=== PATIENT | female | born 1990 | race Caucasian/White ===

== ENCOUNTER 2016-05-07 17:10 | Emergency (ER) | payer SELFPAY ==
[2016-05-07] MEDS ORDERED: Oseltamivir 75 MG CAP ONE (17:49)
--- NOTE | 2016-05-07 18:13 | ERRECORD ---
[facility] EMERGENCY RECORD HPI URI (17:21 WMEI) CHIEF COMPLAINT: Patient presents for evaluation of nasal congestion, Patient presents for evaluation of cough. HISTORIAN: History provided by patient, MYALGIAS AND SUBJECTIVE FEVER. LOCATION: Symptoms are generalized. TIME COURSE: Gradual onset of symptoms, 2, days priror to arrival. ASSOCIATED WITH: No associated chest pain, Associated with chills, Associated with fever, subjective, Associated with headache, currently resolved. EXACERBATED BY: Patient's condition exacerbated by nothing. RELIEVED BY: Patient's condition relieved by nothing. ROS (17:22 WMEI) CONSTITUTIONAL: Historian reports chills, reports fever. EYES: Historian reports eye pain, reports eye discharge. ENT: Historian denies otalgia, reports rhinorrhea, denies sore throat. CARDIOVASCULAR: Historian denies chest pain. RESPIRATORY: Historian reports cough. GI: Historian denies abdominal pain, denies nausea, denies vomiting. GENITOURINARY FEMALE: Historian denies frequency, denies urgency. MUSCULOSKELETAL: Historian denies joint stiffness, denies joint swelling. SKIN: Historian denies skin changes. NEUROLOGIC: Historian denies dizziness, reports headache. PSYCHIATRIC: Historian denies anxiety, denies depression. PAST MEDICAL HISTORY (17:18 ASAH) MEDICAL HISTORY: No past medical history. FEMALE SURGICAL HISTORY: Patient has no surgical history. PSYCHIATRIC HISTORY: No previous psychiatric history. SOCIAL HISTORY: Patient denies alcohol use, Patient denies drug use, Patient currently uses tobacco, smokes cigarettes, Patient smokes 1/2 packs per day. KNOWN ALLERGIES azithromycin traMADol: Reaction: Hives, Severity: Severe, Source: Patient CURRENT MEDICATIONS (17:18 ASAH) None VITAL SIGNS &a-1R&a+25V*p+0X*l8242K*c202B*c15G*c2P*p-0X&a-25V&a+1R Name: Quiana Peterson : 1990 F25 MedRec: [id number] AcctNum: [id number] Prepared: Bessie May 07, 2016 22:55 by Interface Page 1 of 3 pMD [facility] EMERGENCY RECORD VITAL SIGNS: BP: 122/98, Pulse: 128, Resp: 18, Temp: 98.4 (Oral), Pain: 0, O2 sat: 98, Time: 05/07/2016 17:15. (17:15 ASAH) BP: 120/104, Pulse: 110, Resp: 20, O2 sat: 98 on Room Air, Time: 05/07/2016 17:27. (17:27 LSMI) BP: 126/97, Pulse: 110, Resp: 16, Temp: 98.5 (Oral), Pain: 0, O2 sat: 99 on Room Air, Time: 05/07/2016 17:50. (17:50 LSMI) PHYSICAL EXAM (17:24 WMEI) CONSTITUTIONAL: Vital signs reviewed. HEAD: Head exam included findings of head atraumatic, normocephalic. EYES: Pupils equally round and reactive to light, Extraocular muscles intact, Conjunctiva normal. ENT: Ear exam normal, Nose exam normal, Pharynx, injected bilaterally. NECK: Neck exam included findings of normal range of motion, Trachea midline. RESPIRATORY CHEST: Breath sounds clear, Chest exam included findings of chest movement symmetrical. CARDIOVASCULAR: Cardiovascular exam included findings of heart rate regular rate and rhythm, Heart sounds normal. ABDOMEN FEMALE: Abdominal exam included findings of abdomen nontender, no distension. UPPER EXTREMITY: Upper extremity exam included findings of inspection normal, Range of motion normal, Motor strength normal. LOWER EXTREMITY: Lower extremity exam included findings of inspection normal, Range of motion normal, Motor strength normal. NEURO: [place] coma scale 15, Neuro exam findings include patient oriented to person, place and time, Speech normal, Gait normal. SKIN: Skin exam included findings of skin warm, dry, and normal in color. LYMPHATIC: Lymphatic exam normal. PSYCHIATRIC: Psychiatric exam included findings of patient oriented to person place and time, Normal affect, Judgment normal, Insight normal. MEDICATION ADMINISTRATION SUMMARY Drug Name: Tamiflu, Dose Ordered: 75 mg, Route: Oral, Status: Given, Time: 17:55 05/07/2016, Detailed record available in Medication Service section. PROBLEM LIST No recorded problems DIAGNOSIS (17:50 WMEI) FINAL: PRIMARY: INFLUENZA. PRESCRIPTION (17:48 WMEI) Tamiflu: CAPSULE : 75 mg : ORAL : Quantity: 75 Unit: mg &a-1R&a+25V*p+0X*r7463C*c202B*c15G*c2P*p-0X&a-25V&a+1R Name: Quiana Peterson : 1990 F25 MedRec: [id number] AcctNum: [id number] Prepared: WedMay 07, 2016 22:55 by Interface Page 2 of 3 pMD [facility] EMERGENCY RECORD Route: ORAL Schedule: 2 times a day Dispense: 10 Unit: cap(s) May substitute. Refills: No Refills . NOTES: No refills. DISPOSITION PATIENT: Disposition Type: Discharge, Disposition: *Discharge Home. (17:50 WMEI) Patient left the department. (17:58 [facility]) Egan: ASAThelma=KEVIN Nogueira, July LSMI=DOC Aguayo Leah WMEI=DO Jon William &a-1R&a+25V*p+0X*u2485Z*c202B*c15G*c2P*p-0X&a-25V&a+1R Name: Quiana Peterson : 1990 F25 MedRec: [id number] AcctNum: [id number] Prepared: Bessie May 07, 2016 22:55 by Interface Page 3 of 3 pMD MTDD
--- NOTE | 2016-05-07 18:16 | PICIS ---
[facility] EMERGENCY RECORD TRIAGE (WedMay 07, 2016 17:17 ASAH) TRIAGE NOTES: pt c/o feeling fatigue, chills, and fever x 2 days. (WedMay 07, 2016 17:17 ASAH) PATIENT: NAME: Quiana Peterson, AGE: 25, GENDER: female, : Wed1990, TIME OF GREET: WedMay 07, 2016 17:10, PREFERRED LANGUAGE: Maltese, ETHNICITY: Not or , ECODE BILLING MAP: [facility], SSN: [id number], Zip Code: [address], KG WEIGHT: 72.57, , , PERSON ID: [id number], PCP: DARIELA Trinh Kimberly. (WedMay 07, 2016 17:17 ASAH) PHONE: , PAYMENT: [employer] Self Pay. (17:24) COMPLAINT: Fever. (WedMay 07, 2016 17:17 ASAH) ADMISSION: URGENCY: 4 Non Urgent, ADMISSION SOURCE: Home, TRANSPORT: CAR, BED: TRIAGE. (WedMay 07, 2016 17:17 ASAH) SIRS SCORING: Heart Rate 55-109 (0), Temp range 96.8-101.1 (0), respiratory rate 12-24 (0), Mental Status altered: no (0), Infection or Suspected Infection: No. (17:18 ASAH) TRIAGE SCREENING: Patient denies suicidal ideation, Patient denies presence of domestic violence. (17:19 ASAH) LMP: LMP: Not Applicable. (17:18 ASAH) PROVIDERS: TRIAGE NURSE: Robert Nogueira RN. (WedMay 07, 2016 17:17 ASAH) VITAL SIGNS: BP 122/98, Pulse 128, Resp 18, Temp 98.4, (Oral), Pain 0, O2 Sat 98, Time 05/07/2016 17:15. (17:15 ASAH) PREVIOUS VISIT ALLERGIES: azithromycin, traMADol. (WedMay 07, 2016 17:17 ASAH) azithromycin, traMADol. (17:18 ASAH) KNOWN ALLERGIES azithromycin traMADol: Reaction: Hives, Severity: Severe, Source: Patient CURRENT MEDICATIONS (17:18 ASAH) None VITAL SIGNS VITAL SIGNS: BP: 122/98, Pulse: 128, Resp: 18, Temp: 98.4 (Oral), Pain: 0, O2 sat: 98, Time: 05/07/2016 17:15. (17:15 ASAH) BP: 120/104, Pulse: 110, Resp: 20, O2 sat: 98 on Room Air, Time: 05/07/2016 17:27. (17:27 LSMI) BP: 126/97, Pulse: 110, Resp: 16, Temp: 98.5 (Oral), Pain: 0, O2 sat: 99 on Room Air, Time: 05/07/2016 17:50. (17:50 LSMI) NURSING ASSESSMENT: ENT (17:20 ASAH) CONSTITUTIONAL: Patient arrives ambulatory, Gait steady, History obtained from patient, Patient appears comfortable, Patient cooperative, Patient alert, Oriented to person, place and time, Skin warm, Skin dry, Skin normal in color, Patient complains of fever. RESPIRATORY/CHEST: Breath sounds clear, Respiratory assessment findings include respiratory effort easy, Respirations regular, &a-1R&a+25V*p+0X*q2120I*c202B*c15G*c2P*p-0X&a-25V&a+1R Name: Quiana Peterson : 1990 F25 MedRec: [id number] AcctNum: [id number] Prepared: Bessie May 07, 2016 23:01 by Interface Page 1 of 5 pMD [facility] EMERGENCY RECORD Conversing normally, Neck and chest exam findings include trachea midline, Chest expansion equal, Chest movement symmetrical. SAFETY: Side rails up, Cart/Stretcher in lowest position, Call light within reach, Hospital ID band on. NURSING PROCEDURE: DISCHARGE NOTE (17:56 ASA) DISCHARGE: Patient discharged to home, ambulating without assistance, driving self, unaccompanied, Summary of Care printed/ provided, Discharge instructions given to patient, Simple or moderate discharge teaching performed, by robert rn, Prescriptions given and instructions on side effects given, Name of prescription(s) given: tamiflu, Above person(s) verbalized understanding of discharge instructions and follow-up care. NURSING PROCEDURE: ENT (17:21 ASA) PATIENT IDENTIFIER: Patient actively involved in identification process, Patient's identity verified by patient stating name, Patient's identity verified by patient stating date, Patient's identity verified by hospital ID fauzia. ENT: Nasal swab collected, labeled in the presence of the patient and sent to lab for testing of, influenza A, influenza B, collected by Danay. SAFETY: Side rails up, Cart/Stretcher in lowest position, Call light within reach, Hospital ID band on. ORDER DETAILS Order Name: Influenza A&B Ag Screen, Status: Active, Time: 17:20 05/07/2016, User: Quintic, - Ordered for: DO Jon William, - Entered by: DO Jon William - [facility] May 07, 2016 17:20, - Quantity: 1. MEDICATION ADMINISTRATION SUMMARY Drug Name: Tamiflu, Dose Ordered: 75 mg, Route: Oral, Status: Given, Time: 17:55 05/07/2016, Detailed record available in Medication Service section. MEDICATION SERVICE Tamiflu: Order: Tamiflu (oseltamivir phosphate) - Dose: 75 mg : Oral Schedule: Now Ordered by: Brennon Jon DO Entered by: Brennon Jon DO [facility] May 07, 2016 17:49 , Acknowledged by: Robert Nogueira RN [facility] May 07, 2016 17:55 Documented as given by: Robert Nogueira RN [facility] May 07, 2016 17:55 Patient, Medication, Dose, Route and Time verified prior to administration. Amount given: 75mg, Amount wasted: 0, Site: Medication administered &a-1R&a+25V*p+0X*i6936Y*c202B*c15G*c2P*p-0X&a-25V&a+1R Name: Quiana Peterson : 1990 F25 MedRec: [id number] AcctNum: [id number] Prepared: WedMay 07, 2016 23:01 by Interface Page 2 of 5 pMD [facility] EMERGENCY RECORD P.O., Correct patient, time, route, dose and medication confirmed prior to administration, Patient advised of actions and side-effects prior to administration, Allergies confirmed and medications reviewed prior to administration, Patient in position of comfort, Side rails up, Cart in lowest position. : Follow Up : No signs or symptoms of allergic reaction noted. (17:57 ASAH) HPI URI (17:21 WMEI) CHIEF COMPLAINT: Patient presents for evaluation of nasal congestion, Patient presents for evaluation of cough. HISTORIAN: History provided by patient, MYALGIAS AND SUBJECTIVE FEVER. LOCATION: Symptoms are generalized. TIME COURSE: Gradual onset of symptoms, 2, days priror to arrival. ASSOCIATED WITH: No associated chest pain, Associated with chills, Associated with fever, subjective, Associated with headache, currently resolved. EXACERBATED BY: Patient's condition exacerbated by nothing. RELIEVED BY: Patient's condition relieved by nothing. ROS (17:22 WMEI) CONSTITUTIONAL: Historian reports chills, reports fever. EYES: Historian reports eye pain, reports eye discharge. ENT: Historian denies otalgia, reports rhinorrhea, denies sore throat. CARDIOVASCULAR: Historian denies chest pain. RESPIRATORY: Historian reports cough. GI: Historian denies abdominal pain, denies nausea, denies vomiting. GENITOURINARY FEMALE: Historian denies frequency, denies urgency. MUSCULOSKELETAL: Historian denies joint stiffness, denies joint swelling. SKIN: Historian denies skin changes. NEUROLOGIC: Historian denies dizziness, reports headache. PSYCHIATRIC: Historian denies anxiety, denies depression. PAST MEDICAL HISTORY (17:18 ASAH) MEDICAL HISTORY: No past medical history. FEMALE SURGICAL HISTORY: Patient has no surgical history. PSYCHIATRIC HISTORY: No previous psychiatric history. SOCIAL HISTORY: Patient denies alcohol use, Patient denies drug use, Patient currently uses tobacco, smokes cigarettes, Patient smokes 1/2 packs per day. &a-1R&a+25V*p+0X*e3408S*c202B*c15G*c2P*p-0X&a-25V&a+1R Name: Quiana Peterson : 1990 F25 MedRec: [id number] AcctNum: [id number] Prepared: Bessie May 07, 2016 23:01 by Interface Page 3 of 5 pMD [facility] EMERGENCY RECORD PHYSICAL EXAM (17:24 WMEI) CONSTITUTIONAL: Vital signs reviewed. HEAD: Head exam included findings of head atraumatic, normocephalic. EYES: Pupils equally round and reactive to light, Extraocular muscles intact, Conjunctiva normal. ENT: Ear exam normal, Nose exam normal, Pharynx, injected bilaterally. NECK: Neck exam included findings of normal range of motion, Trachea midline. RESPIRATORY CHEST: Breath sounds clear, Chest exam included findings of chest movement symmetrical. CARDIOVASCULAR: Cardiovascular exam included findings of heart rate regular rate and rhythm, Heart sounds normal. ABDOMEN FEMALE: Abdominal exam included findings of abdomen nontender, no distension. UPPER EXTREMITY: Upper extremity exam included findings of inspection normal, Range of motion normal, Motor strength normal. LOWER EXTREMITY: Lower extremity exam included findings of inspection normal, Range of motion normal, Motor strength normal. NEURO: [place] coma scale 15, Neuro exam findings include patient oriented to person, place and time, Speech normal, Gait normal. SKIN: Skin exam included findings of skin warm, dry, and normal in color. LYMPHATIC: Lymphatic exam normal. PSYCHIATRIC: Psychiatric exam included findings of patient oriented to person place and time, Normal affect, Judgment normal, Insight normal. EVENTS TRANSFER: Triage to Emergency Triage. (17:17 ASAH) Emergency Triage to Emergency Room -02. (17:26 ASAH) Removed from Emergency Emergency Room -02. (17:58 ASAH) PROBLEM LIST No recorded problems DIAGNOSIS (17:50 WMEI) FINAL: PRIMARY: INFLUENZA. DISPOSITION PATIENT: Disposition Type: Discharge, Disposition: *Discharge Home. (17:50 WMEI) Patient left the department. (17:58 ASAH) INSTRUCTION (17:51 WMEI) DISCHARGE: INFLUENZA (ADULT). FOLLOWUP: DARIELA Trinh, Olivia, [facility], [address] [place] [id number], . SPECIAL: Follow-up with your primary physician as needed. &a-1R&a+25V*p+0X*o2310O*c202B*c15G*c2P*p-0X&a-25V&a+1R Name: Kristen Quiana Lane : 1990 F25 MedRec: [id number] AcctNum: [id number] Prepared: Bessie May 07, 2016 23:01 by Interface Page 4 of 5 pMD [facility] EMERGENCY RECORD PRESCRIPTION (17:48 WMEI) Tamiflu: CAPSULE : 75 mg : ORAL : Quantity: 75 Unit: mg Route: ORAL Schedule: 2 times a day Dispense: 10 Unit: cap(s) May substitute. Refills: No Refills . NOTES: No refills. IMAGING *DISCHARGE INSTRUCTIONS RECEIPT: Image captured from scanner. (17:57 ASA) *SUPPLY CHARGE SHEET: Image captured from scanner. (17:58 ASA) ADMIN DIGITAL SIGNATURE: KEVIN Nogueira, July. (17:58 ASA) DO Jon William. (22:51 WM) Egan: ASAH=KEVIN Nogueira, July LSMI=DOC Aguayo Leah WMEI=DO Jon William &a-1R&a+25V*p+0X*g4383H*c202B*c15G*c2P*p-0X&a-25V&a+1R Name: MichQuiana christopher Ariana : 1990 F25 MedRec: [id number] AcctNum: [id number] Prepared: Bessie May 07, 2016 23:01 by Interface Page 5 of 5 pMD MTDD
== END 2016-05-07 17:55 | disposition home or self-care (01) ==
LOC: BURERS 17:10
DX: J11.1 Influenza due to unidentified influenza virus with other respiratory manifestations (principal); F17.210 Nicotine dependence, cigarettes, uncomplicated
CPT/HCPCS: 99283

== ENCOUNTER 2016-07-17 14:43 | Emergency (ER) | payer SELFPAY | END 2016-07-17 14:56 | disposition home or self-care (01) | LOC: BURERS 14:44 | DX: K08.89 Other specified disorders of teeth and supporting structures (principal); F17.210 Nicotine dependence, cigarettes, uncomplicated | CPT/HCPCS: 99282 ==

== ENCOUNTER 2016-07-24 12:27 | Emergency (ER) | payer SELFPAY ==
[2016-07-24] MEDS ORDERED: Ondansetron HCl/PF 4 MG/2 ML Vial ONE (12:48)
[2016-07-24 13:46] LABS: ALT (SGPT) 18 U/L (0-55); AST (SGOT) 17 U/L (5-34); Albumin 4.6 g/dL (3.5-5.0); Alkaline Phosphatase 67 U/L (40-150); Anion Gap 14 mmol/L (10-20); BUN (Urea Nitrogen) 8 mg/dL (7.0-18.7); Bilirubin, Total 2.2 mg/dL (0.2-1.2); Calc. Creatinine Clearance 0 mL/min (70-130); Carbon Dioxide 25 mmol/L (22-29); Chloride 101 mmol/L (98-107); Estimated GFR-MDRD 87; Globulin 3.5 g/dL (2.4-3.5); Glucose 96 mg/dL (70-105); Potassium 3.3 mmol/L (3.5-5.1); Protein, Total 8.1 g/dL (6.0-8.3); Sodium 137 mmol/L (136-145)
[2016-07-24 14:00] LABS: Hemoglobin 14.9 g/dL (12.0-16.0); Mean Corpuscular HGB CONC 35.8 g/dL (32.0-36.0); Mean Platelet Volume 10.3 fL (7.4-10.4); Platelet Count 146 thou/uL (130-400); RBC Distribution Width 11.3 % (11.5-14.5); Red Blood Cell (RBC) Count 4.52 mill/uL (4.20-5.40); White Blood Cell (WBC) Count 22.5 thou/uL (4.8-10.8)
[2016-07-24 14:27] LABS: Band 2 % (5-11); Lymphocytes 10 % (21-51); MDiff Complete? YES; Monocytes 4 % (0-10); Neutrophil 84 % (42-75); PLT Morphology Comment Appears Adequate; RBC Morphology Normal
== END 2016-07-24 14:26 | disposition home or self-care (01) ==
LOC: BURERS 12:27
DX: K52.9 Noninfective gastroenteritis and colitis, unspecified (principal); F17.210 Nicotine dependence, cigarettes, uncomplicated
CPT/HCPCS: 80053; 85025; 96361; 96374; J2405

== ENCOUNTER 2018-05-03 08:26 | Emergency (ER) | payer SELFPAY ==
[2018-05-03] MEDS ORDERED: Benzocaine 20% Spray 60 ML CAN ONE ×2 (09:01)
[2018-05-03 09:15] LABS: #Lymphocytes 1.7 thou/uL (1.20-3.40); #Neutrophils 16.9 thou/uL (1.40-6.50); %Basophils 0.2 % (0.0-1.0); %Eosinophils 0.2 % (0.0-10.0); %Lymphocytes 8.8 % (21.0-51.0); %Monocytes 5.3 % (0.0-10.0); %Neutrophils 85.6 % (42.0-75.0); Hemoglobin 15.2 g/dL (12.0-16.0); Mean Corpuscular HGB CONC 36.8 g/dL (32.0-36.0); Mean Corpuscular Hemoglobin 33.5 pg (27.0-31.0); Mean Corpuscular Volume 91.1 fL (78.0-98.0); Mean Platelet Volume 9.1 fL (7.4-10.4); Platelet Count 191 thou/uL (130-400); RBC Distribution Width 11.2 % (11.5-14.5); Red Blood Cell (RBC) Count 4.54 mill/uL (4.20-5.40); White Blood Cell (WBC) Count 19.7 thou/uL (4.8-10.8)
[2018-05-03 09:31] LABS: Anion Gap 15 mmol/L (10-20); BUN (Urea Nitrogen) 5 mg/dL (7.0-18.7); Calc. Creatinine Clearance 0 mL/min (70-130); Calcium 10.5 mg/dL (7.8-10.44); Carbon Dioxide 25 mmol/L (22-29); Chloride 100 mmol/L (98-107); Estimated GFR-MDRD Greater than 90; Glucose 105 mg/dL (70-105); Potassium 3.9 mmol/L (3.5-5.1); Sodium 136 mmol/L (136-145)
[2018-05-03] MEDS ORDERED: Ketorolac Tromethamine 30 MG/ML VIAL ONE (09:50)
[2018-05-03] MEDS ORDERED: Dexamethasone 4 MG TAB ONE (09:50)
[2018-05-03] MEDS ORDERED: Clindamycin 150 MG CAP ONE (09:50)
--- NOTE | 2018-05-03 19:45 | CT ---
CT NECK SOFT TISSUES WITH CONTRAST: 05/03/2018 TECHNIQUE: A spiral CT of the neck was done for evaluation of right tonsillar swelling. Axial slices were acqui red after giving IV contrast, and then coronal and sagittal reconstructions were done. FINDINGS: There is a large, fluid-filled abscess in the right tonsillar region, measuring about 2.2 cm in lengt h. Abscess is diagnosed. There is an abundance of deep cervical adenopathy bilaterally, a little mo re prominent on the right than the left. No necrotic or abscess nodes are seen. No other masses are seen. IMPRESSION: Large right peritonsillar abscess. Findings discussed with Dr. Robertson at 0856 hours. A temporary written report was placed on PACS, sim ultaneously. CODE CR POS: HOME
== END 2018-05-03 10:10 | disposition home or self-care (01) ==
LOC: BURERS 08:26
DX: J36 Peritonsillar abscess (principal); F17.210 Nicotine dependence, cigarettes, uncomplicated
CPT/HCPCS: 42700; 70491; 80048; 85025; 96374; J1885; J8540

== ENCOUNTER 2018-05-31 10:14 | Emergency (ER) | payer SELFPAY ==
[2018-05-31] MEDS ORDERED: Benzocaine 20% Spray 60 ML CAN ONE (10:40)
== END 2018-05-31 11:30 | disposition home or self-care (01) ==
LOC: BURERS 10:14
DX: J36 Peritonsillar abscess (principal); F17.210 Nicotine dependence, cigarettes, uncomplicated
CPT/HCPCS: 42700

== ENCOUNTER 2022-02-09 16:40 | Emergency (ER) | payer OTHER ==
[2022-02-09] MEDS ORDERED: Penicillin V Potassium 250 MG TAB ONE (17:23)
== END 2022-02-09 17:29 | disposition home or self-care (01) ==
LOC: BURERS 16:40
DX: K02.9 Dental caries, unspecified (principal); L03.211 Cellulitis of face; F17.210 Nicotine dependence, cigarettes, uncomplicated
CPT/HCPCS: 99283

== ENCOUNTER 2023-10-14 18:40 | Emergency (ER) | payer OTHER ==
[2023-10-14] MEDS ORDERED: methylPREDNISolone Sod Succ/PF 125 MG/2 ML VIAL ONE (18:51)
[2023-10-14 19:12] LABS: #Basophils 0.1 thou/uL (0.0-0.2); #Eosinphils 0.1 thou/uL (0.0-0.7); #Monocytes 0.4 thou/uL (0.11-0.59); #Neutrophils 6.7 thou/uL (1.40-6.50); %Basophils 0.5 % (0.0-1.0); %Eosinophils 0.6 % (0.0-10.0); %Lymphocytes 45.4 % (21.0-51.0); %Monocytes 2.7 % (0.0-10.0); %Neutrophils 50.7 % (42.0-75.0); Hematocrit 45.1 % (36.0-47.0); Hemoglobin 15.2 g/dL (12.0-16.0); Mean Corpuscular HGB CONC 33.7 g/dL (32.0-36.0); Mean Corpuscular Hemoglobin 30.7 pg (27.0-31.0); Mean Corpuscular Volume 91.3 fl (78.0-98.0); Mean Platelet Volume 9.4 fL (7.4-10.4); Platelet Count 271 10x3/uL (130-400); RBC Distribution Width 11.9 % (11.5-14.5); Red Blood Cell (RBC) Count 4.94 mill/uL (4.20-5.40); White Blood Cell (WBC) Count 13.1 10x3/uL (4.8-10.8)
[2023-10-14 19:30] LABS: ALT (SGPT) 17 U/L (8-55); AST (SGOT) 17 U/L (5-34); Alkaline Phosphatase 77 U/L (40-110); Anion Gap 19 mmol/L (10-20); BUN (Urea Nitrogen) 9 mg/dL (7.0-18.7); Bilirubin, Total 0.6 mg/dL (0.2-1.2); Calc. Creatinine Clearance 0 mL/min (70-130); Carbon Dioxide 19 mmol/L (22-29); Chloride 104 mmol/L (98-107); Estimated GFR 67; Globulin 3.2 g/dL (2.4-3.5); Glucose 148 mg/dL (70-105); Potassium 2.8 mmol/L (3.5-5.1); Protein, Total 7.2 g/dL (6.0-8.3); Sodium 139 mmol/L (136-145)
[2023-10-14 20:21] LABS: Magnesium 1.6 mg/dL (1.6-2.6); Potassium 2.8 mmol/L (3.5-5.1)
[2023-10-14] MEDS ORDERED: Potassium Chloride 20 MEQ TAB ONE (20:28)
[2023-10-14] MEDS ORDERED: NS 0.9% w/ 20 MEQ KCL 1,000 ML ONE (20:34)
[2023-10-14 22:30] LABS: Potassium 4.3 mmol/L (3.5-5.1)
== END 2023-10-14 22:41 | disposition home or self-care (01) ==
LOC: BURERS 18:40
DX: T63.463A Toxic effect of venom of wasps, assault, initial encounter (principal); E87.6 Hypokalemia; I10 Essential (primary) hypertension; F17.210 Nicotine dependence, cigarettes, uncomplicated; Z79.899 Other long term (current) drug therapy
CPT/HCPCS: 80053; 83735; 85025; 96365; 96366; 96375; J2930; J3480